=== PATIENT | male | born 1950 | race Caucasian/White ===

== ENCOUNTER 2024-02-17 04:53 | Day surgery (SDC) | payer OTHER, BC ==
[2024-02-16 10:00] VITALS: BMI 24.3
[2024-02-17] MEDS ORDERED: LIDOCAINE HCL 1%, 10 MG/ML (20ML VIAL) ONE (07:05)
[2024-02-17] MEDS ORDERED: ONDANSETRON 4 MG/2 ML VIAL IVPUSH PRN (07:05)
[2024-02-17] MEDS ORDERED: oxyCODONE HCL 5 MG TABLET PO PRN ×2 (07:05)
[2024-02-17] MEDS ORDERED: BUPIVACAINE HCL/PF 0.5% (5MG/ML) 10 ML VIAL ONE ×2 (07:06→07:55)
[2024-02-17] MEDS ORDERED: GENTAMICIN SO4 80 MG/2 ML VIAL ONE (07:18)
[2024-02-17] MEDS ORDERED: DEXAMETHASONE SOD PHOSPHATE 10 MG/1 ML VIAL ONE ×2 (07:19→08:22)
[2024-02-17] MEDS ORDERED: LIDOCAINE HCL/PF 2% SDV 5ML VIAL ONE (07:23)
[2024-02-17] MEDS ORDERED: MIDAZOLAM HCL 2 MG/2 ML SINGLE DOSE VIAL ONE (07:23)
[2024-02-17] MEDS ORDERED: FENTANYL CITRATE/PF 50 MCG/ML VIAL ONE (07:23)
[2024-02-17] MEDS ORDERED: PROPOFOL 80 ML ONE (07:23)
[2024-02-17] MEDS ORDERED: DEXAMETHASONE SOD PHOSPHATE 4 MG/1 ML VIAL ONE (07:23)
[2024-02-17] MEDS: ceFAZolin SODIUM 1 GM VIAL IVPB ONE ×2 (07:46→07:51)
[2024-02-17] MEDS: GENTAMICIN SO4 80 MG/2 ML VIAL IVPB ONE (07:50)
[2024-02-17] MEDS: BUPIVACAINE HCL/PF 0.5% (5 MG/ML) 30 ML VIAL IJ ONE ×2 (07:50→09:15)
[2024-02-17] MEDS: LIDOCAINE HCL 1%, 10 MG/ML (50 mL VIAL) SQ ONE (07:50)
[2024-02-17] MEDS: DEXAMETHASONE SOD PHOSPHATE 10 MG/1 ML VIAL IVPUSH ONE (09:15)
[2024-02-17] MEDS: LACTATED RINGERS SOLUTION 1,000 ML IV SCH (10:26)
[2024-02-17 10:51] VITALS: RESP 20
[2024-02-17 12:36] VITALS: BP 138/83; PULSE 68; TEMP 97.8
== END 2024-02-17 12:15 | disposition home or self-care (01) ==
LOC: JASU-SURG 04:53
PROVIDERS: ATTEND Podiatrist Foot Surgery
PROC: 0QBN0ZZ Excision of Right Metatarsal, Open Approach (ICD-10-PCS; principal; 2024-02-17 07:30)
DX: M20.41 Other hammer toe(s) (acquired), right foot (principal); M21.621 Bunionette of right foot; M10.9 Gout, unspecified; M67.471 Ganglion, right ankle and foot
CPT/HCPCS: 36415; 73630-TC-RT-FY; 82010; 82962; 88305-TC; 88311-TC; 93005; 93010; 94760; J1100